=== PATIENT | male | born 1965 | race African-American/Black ===

== ENCOUNTER → 2017-04-08 | Outpatient (CLI) | payer OTHER ==
[~2017-04-08] MED LIST: DOCU1CAP39 PO; IBUP600T26 PO; IBUP800T23 PO; OXYC1TAB63 PO; SAW450CA2 PO
--- NOTE | 2017-04-08 10:39 | RADRPT ---
EXAM DATE/TIME: 04/08/2017 08:42 [facility] COMPARISON: CHEST SINGLE AP, May 14, 2016, 15:58. INDICATIONS : Evaluate for communicable disease, pneumonia, pneumothorax pt states lung surgery 04/18 MEDICAL HISTORY : None. SURGICAL HISTORY : None. ENCOUNTER: Initial ACUITY: 1 day PAIN SCORE: 0/10 LOCATION: Bilateral chest FINDINGS: PA and lateral views of the chest demonstrate diffuse interstitial densities without evidence of mass or effusion. The cardiomediastinal contours are unremarkable. Osseous structures are intact. CONCLUSION: Diffuse interstitial densities appears chronic. Ronny Drummond MD on April 08, 2017 at 9:11 Board Certified Radiologist. This report was verified electronically.
== END ==
LOC: CPRE 07:26
PROVIDERS: ATTEND Thoracic Surgery (Cardiothoracic Vascular Surgery)
DX: Z01.810 Encounter for preprocedural cardiovascular examination (principal); Z01.811 Encounter for preprocedural respiratory examination; Z01.812 Encounter for preprocedural laboratory examination; J84.9 Interstitial pulmonary disease, unspecified
CPT/HCPCS: 71020

== ENCOUNTER 2017-04-18 05:29 | Inpatient (IN) | payer OTHER ==
[~2017-04-18] VITALS: Ht 180.3 cm; Wt 88.0 kg
[2017-04-18] VITALS (9 sets, daily range): PULSE 55–93
[~2017-04-18 05:29] MED LIST changes: -DOCU1CAP39 PO; -IBUP600T26 PO; -OXYC1TAB63 PO; -SAW450CA2 PO
[2017-04-18] MEDS ORDERED: CHLORHEXIDINE GLUCONATE 2 % 1 PACK (2 CLOTHS) TOPICAL PRN (06:00)
[2017-04-18] MEDS ORDERED: LACTATED RINGER'S 1000 ML IV PRN (06:00)
[2017-04-18] MEDS ORDERED: INSULIN HUMAN REGULAR 1,000 UNITS/10 ML VIAL SQ PRN (06:00)
[2017-04-18] MEDS ORDERED: METOPROLOL TARTRATE 25 MG TAB PO PRN (06:00)
[2017-04-18] MEDS ORDERED: POVIDONE IODINE 5% (ANTISEPSIS KIT) 4 APPLICATIONS EACH NARE PRN (06:00)
[2017-04-18] MEDS ORDERED: SODIUM CHLORID 0.9% 500 ML IV PRN (06:00)
[2017-04-18] MEDS ORDERED: SAW450CA2 PO (06:42)
[2017-04-18] MEDS ORDERED: DEXAMETHASONE SOD PHOS 4 MG/ML VIAL ONE (07:04)
[2017-04-18] MEDS ORDERED: FAMOTIDINE 20 MG/2 ML VIAL ONE (07:04)
[2017-04-18] MEDS ORDERED: MIDAZOLAM HCL 2 MG/2 ML VIAL ONE (07:04)
[2017-04-18 07:11] LABS: BICARBONATE 26.9 MEQ/L (21.0-32.0); POTASSIUM 3.9 MEQ/L (3.5-5.1)
[2017-04-18] MEDS ORDERED: BUPIVACAINE LIPOSO PF 1.3% INJ 20 ML, DEXAMETHASONE INJ 4 MG, MORPHINE INJ 8 MG in SODI... IRRIGATION SCH (08:00)
[2017-04-18] MEDS ORDERED: ceFAZolin 2 GM PREMIX 50 ML ONE (09:07)
[2017-04-18] MEDS ORDERED: SODIUM CHLORIDE 0.9% FLUSH 5 ML FLUSH IV FLUSH PRN (10:30)
[2017-04-18] MEDS ORDERED: Post-op Orders (for Pharmacy) MISC OTHER ONE (10:30)
[2017-04-18] MEDS ORDERED: RESP: ALBUTEROL 2.5 MG/3 ML NEB (PRN) NEB (11:00)
[2017-04-18] MEDS ORDERED: MAGNESIUM HYDROXIDE SUSP 30 ML CUP PO PRN (11:00)
[2017-04-18] MEDS ORDERED: ACETAMINOPHEN 325 MG TAB PO PRN (11:00)
[2017-04-18] MEDS ORDERED: ONDANSETRON HCL 4 MG/2 ML VIAL IV PUSH PRN (11:00)
[2017-04-18] MEDS: KETOROLAC TROMETHAMINE 30 MG/ML (IVP) VIAL IV PUSH SCH ×3 (11:00→23:22)
[2017-04-18] MEDS: ACETAMINOPHEN 1000 MG/100 ML VIAL IV SCH ×3 (11:00→23:23)
[2017-04-18] MEDS: SODIUM CHLORIDE 0.9% FLUSH 5 ML FLUSH IV FLUSH SCH ×2 (11:00→20:43)
--- NOTE | 2017-04-18 11:43 | RADRPT ---
EXAM DATE/TIME: 04/18/2017 11:07 [facility] COMPARISON: CHEST PA & LAT, April 08, 2017, 8:42. CHEST SINGLE AP, May 14, 2016, 15:58. INDICATIONS : Post thoracotomy. MEDICAL HISTORY : None. SURGICAL HISTORY : None. ENCOUNTER: Initial ACUITY: 1 day PAIN SCORE: 7/10 LOCATION: Bilateral chest FINDINGS: A single portable frontal view of the chest shows a right-sided thoracostomy tube. A tiny lateral pne umothorax noted. Diffuse pulmonary infiltrates which are mixed interstitial and intra-alveolar in kash ure. No effusions. Heart is normal in size. A degenerative spine. CONCLUSION: 1. Tiny lateral pneumothorax on the right with right thoracostomy tube in good position. 2. Diffuse pulmonary opacities. Jesús Camarena Jr., MD on April 18, 2017 at 11:41 Board Certified Radiologist. This report was verified electronically.
[2017-04-18] MEDS ORDERED: ePHEDrine/NS 25 MG/5 ML SYR IV ONE (12:00)
[2017-04-18] MEDS ORDERED: ONDANSETRON HCL 4 MG/2 ML VIAL IV PUSH ONE (12:00)
[2017-04-18] MEDS ORDERED: PHENYLEPH/NS 1000 MCG/10 ML SYR IV ONE (12:00)
[2017-04-18] MEDS ORDERED: PROPOFOL 200 MG/20 ML AMP IV ONE (12:00)
[2017-04-18] MEDS ORDERED: NORMOSOL R INJ 1,000 ML IV ONE (12:00)
[2017-04-18] MEDS ORDERED: NEOSTIGMINE 3 MG/3 ML SYR IV ONE (12:00)
[2017-04-18] MEDS ORDERED: DO NOT ADM ANY ANTICOAGULANT DRUGS PRN (13:00)
--- NOTE | 2017-04-18 13:02 | PD.OP ---
cc: Bakari Rogel MD; Negro Landon MD Operative Report Date of Surgery: Apr 18, 2017 Preoperative Diagnosis: Postoperative Diagnosis: Procedure: 1. Right Video-Assisted Thoracoscopic Surgery (VATS). 2. Right Upper Lobe Biopsy 3. Right Middle Lobe Biopsy 4. Pleural-based Chest Wall Biopsy 5. Intercostal Nerve Block Surgeon: Negro Landon Returned Goods Repairer(s): Patric Lee Operation and Findings: PREOPERATIVE DIAGNOSES 1. Idiopathic Pulmonary Insufficiency 2. Bilateral Pulmonary Infiltrates POSTOPERATIVE DIAGNOSES Same SURGICAL PROCEDURE 1. Right Video-Assisted Thoracoscopic Surgery (VATS). 2. Right Upper Lobe Biopsy 3. Right Middle Lobe Biopsy 4. Pleural-based Chest Wall Biopsy 5. Intercostal Nerve Block SURGEON Negro Landon MD CASUAL SHOE INSPECTOR Gaurav Christensen FINANCIAL CENTER MANAGER ANESTHESIA General double lumen endotracheal. CAT DOG OR OTHER PET GROOMER Vikram Noguera, AYLIN Whitt MD PREPARATION ChloraPrep. COUNTS Needle, sponge, and instrument counts are correct. DRAINS One 28-Fr Chest Tube. COMPLICATIONS None. INDICATIONS The patient is a 51 yo gentleman with progressive dyspnea on unknown etiology. The patient is being brought to the operating room for lung biopsy. DESCRIPTION OF PROCEDURE The patient was brought to the operating room and placed supine on the OR table. Following the induction of adequate general double lumen endotracheal anesthesia and placement of appropriate monitoring devices, the patient was placed in the left lateral decubitus position. The right chest and surrounding areas were then prepped and draped in a standard sterile fashion. A 5 mm camera port was introduced into the 9th intercostal space in mid axillary line, and the camera introduced. A second 5 mm port was then placed anteriorly under direct visual guidance and an additional port placed posteriorly. Based on the chest CT a wedge biopsies of the superior segment of the left lobe and the anterior segment of the upper lobe were obtained and sent for histological and microbiological analysis. Additional biopsy of a pleural based chest wall calcific lesion was obtained and sent for histological analysis. The anterior port was removed and a 28 Fr chest tube was introduced and maintained in place with a nonabsorbable suture. All of the port sites were injected with Exparel solution. Following confirmation of the catheter in the proper place, the incisions were closed with [address] was attached to a Pleur-evac suction device, and sterile dressing applied. Intercostal nerve block was performed using Ropivacaine/Morphine solution at the level of the ports as well as 3 rib spaces above and below. The patient tolerated the procedure well and was extubated and transferred to the recovery room in stable condition. Negro Landon MD Apr 18, 2017 13:02
[2017-04-18] MEDS: oxyCODONE/ACETAMINOPHEN 5 MG/325 MG TAB PO PRN ×2 (14:28→20:43)
--- NOTE | 2017-04-18 15:11 | PD.CAR.PN ---
CVT Progress Note Subjective/Hospital Course: 51/ male , hx one year hx of dry non-productive cough and progressive SOB. W/U has included CXR Chest CT and bronch which demonstrated reticulondular lung paterrn without distinct mass , BX was non-diagnostic non smoker , here for elective surgery to eval Interstitial Lung disease unknown etilogy PREOPERATIVE DIAGNOSES 1. Idiopathic Pulmonary Insufficiency 2. Bilateral Pulmonary Infiltrates SURGICAL PROCEDURE 04/18 1. Right Video-Assisted Thoracoscopic Surgery (VATS). 2. Right Upper Lobe Biopsy 3. Right Middle Lobe Biopsy 4. Pleural-based Chest Wall Biopsy Objective: Vital Signs Date Time Temp Pulse Resp B/P (MAP) Pulse Ox O2 Delivery O2 Flow Rate FiO2 04/18/17 14:32 18 04/18/17 14:31 18 04/18/17 13:55 97.6 85 16 138/73 (94) 100 Nasal Cannula 3 04/18/17 13:00 85 16 128/64 (85) 100 Nasal Cannula 3 04/18/17 12:30 60 16 134/66 (88) 100 Nasal Cannula 3 04/18/17 12:00 58 15 136/62 (86) 100 Nasal Cannula 3 04/18/17 11:45 59 15 143/75 (97) 100 Nasal Cannula 3 04/18/17 11:30 58 16 146/67 (93) 100 Nasal Cannula 3 04/18/17 11:15 58 16 149/81 (103) 100 Nasal Cannula 3 04/18/17 11:00 70 15 153/83 (106) 100 Nasal Cannula 3 04/18/17 10:55 97.5 64 15 134/69 (90) 100 Nasal Cannula 3 Labs: Laboratory Tests Test 04/18/17 06:35 Blood Urea Nitrogen 18 MG/DL (7-18) Creatinine 1.20 MG/DL (0.60-1.30) Random Glucose 148 MG/DL (74-106) Calcium Level 9.0 MG/DL (8.5-10.1) Sodium Level 140 MEQ/L (136-145) Potassium Level 3.9 MEQ/L (3.5-5.1) Chloride Level 105 MEQ/L (98-107) Carbon Dioxide Level 26.9 MEQ/L (21.0-32.0) Anion Gap 8 MEQ/L (5-15) Estimat Glomerular Filtration Rate 77 ML/MIN (>89) Result Diagram: 04/18/17 0635 Chelsey Acevedo Apr 18, 2017 15:11
[2017-04-18] MEDS: RESP: ALBUTEROL 2.5 MG/3 ML NEB (SCH) NEB ×2 (16:00→22:00)
[2017-04-18] MEDS: PANTOPRAZOLE SOD 40 MG DELAYED RELEASE TAB PO SCH (20:43)
[2017-04-18] MEDS ORDERED: DOCUSATE CALCIUM 240 MG CAP PO SCH (21:00)
[2017-04-19] VITALS (29 sets, daily range): BP systolic 118–141; BP diastolic 78–90; PULSE 50–86; RESP 16–18; TEMP 97.7–98.7; O2SAT 96–100
[2017-04-19] MEDS: RESP: ALBUTEROL 2.5 MG/3 ML NEB (SCH) NEB ×4 (02:58→21:24)
[2017-04-19] MEDS: oxyCODONE/ACETAMINOPHEN 5 MG/325 MG TAB PO PRN ×4 (03:19→23:52)
[2017-04-19] MEDS: KETOROLAC TROMETHAMINE 30 MG/ML (IVP) VIAL IV PUSH SCH (04:44)
[2017-04-19] MEDS: ACETAMINOPHEN 1000 MG/100 ML VIAL IV SCH (04:45)
[2017-04-19] MEDS: SODIUM CHLORIDE 0.9% FLUSH 5 ML FLUSH IV FLUSH SCH ×2 (09:00→20:39)
--- NOTE | 2017-04-19 10:13 | RADRPT ---
EXAM DATE/TIME: 04/19/2017 09:16 [facility] COMPARISON: CHEST SINGLE AP, April 18, 2017, 11:07. INDICATIONS : Patient had right lung biopsy yesterday. MEDICAL HISTORY : None. SURGICAL HISTORY : None. ENCOUNTER: Initial ACUITY: 1 day PAIN SCORE: 4/10 LOCATION: Right upper chest FINDINGS: Chest tube in place on the right with trace pneumothorax improved in the interval. Coarse interstiti al changes persist in both lungs. CONCLUSION: Trace pneumothorax on the right with chest tube in good position. Efrem Barlow MD FACR on April 19, 2017 at 10:11 Board Certified Radiologist. This report was verified electronically.
[2017-04-19] MEDS: DOCUSATE SODIUM 100 MG CAP PO SCH ×2 (11:04→20:39)
[2017-04-19] MEDS: POLYETHYLENE GLYCOL 17 GM PKG PO SCH (11:04)
--- NOTE | 2017-04-19 11:17 | PD.CAR.PN ---
CVT Progress Note Subjective/Hospital Course: 51/ male , hx one year hx of dry non-productive cough and progressive SOB. W/U has included CXR Chest CT and bronch which demonstrated reticulondular lung paterrn without distinct mass , BX was non-diagnostic non smoker , here for elective surgery to eval Interstitial Lung disease unknown etilogy PREOPERATIVE DIAGNOSES 1. Idiopathic Pulmonary Insufficiency 2. Bilateral Pulmonary Infiltrates SURGICAL PROCEDURE 04/18 1. Right Video-Assisted Thoracoscopic Surgery (VATS). 2. Right Upper Lobe Biopsy 3. Right Middle Lobe Biopsy 4. Pleural-based Chest Wall Biopsy 04/19 repeat CXR shows trace right PTX, no air leak, to water seal on room air, pain controlled path pending Objective: GENERAL: SKIN: Warm and dry. dressing D&I right posterior chest wall HEAD: Normocephalic. EYES: No scleral icterus. No injection or drainage. NECK: Supple, trachea midline. No JVD or lymphadenopathy. CARDIOVASCULAR: Regular rate and rhythm without murmurs, gallops, or rubs. RESPIRATORY: Breath sounds equal bilaterally. No accessory muscle use. chest tube in place, no air leak, to water seal GASTROINTESTINAL: Abdomen soft, non-tender, nondistended. MUSCULOSKELETAL: No cyanosis, or edema. BACK: Nontender without obvious deformity. No CVA tenderness. Vital Signs Date Time Temp Pulse Resp B/P (MAP) Pulse Ox O2 Delivery O2 Flow Rate FiO2 04/19/17 10:40 18 04/19/17 09:47 98 04/19/17 07:00 59 04/19/17 07:00 98.1 55 18 118/82 (94) 100 04/19/17 07:00 95 0.50 04/19/17 06:00 57 04/19/17 05:00 54 04/19/17 04:00 65 04/19/17 03:02 99 Nasal Cannula 2.00 04/19/17 03:00 76 04/19/17 03:00 98 Nasal Cannula 2.00 04/19/17 02:00 50 04/19/17 01:00 51 04/19/17 00:00 50 04/18/17 23:05 Nasal Cannula 2.00 04/18/17 23:00 99 Nasal Cannula 2.50 04/18/17 23:00 55 04/18/17 22:00 56 04/18/17 21:00 80 04/18/17 20:35 Nasal Cannula 2.50 04/18/17 20:30 99 Nasal Cannula 3.00 04/18/17 20:00 76 04/18/17 19:00 81 04/18/17 18:02 86 04/18/17 17:22 16 04/18/17 17:22 16 04/18/17 17:11 63 04/18/17 16:00 93 04/18/17 15:17 87 04/18/17 13:55 97.6 85 16 138/73 (94) 100 Nasal Cannula 3 04/18/17 13:00 85 16 128/64 (85) 100 Nasal Cannula 3 04/18/17 12:30 60 16 134/66 (88) 100 Nasal Cannula 3 04/18/17 12:00 58 15 136/62 (86) 100 Nasal Cannula 3 04/18/17 11:45 59 15 143/75 (97) 100 Nasal Cannula 3 04/18/17 11:30 58 16 146/67 (93) 100 Nasal Cannula 3 04/18/17 11:15 58 16 149/81 (103) 100 Nasal Cannula 3 Result Diagram: 04/18/17 0635 Telemetry: NSR (1) Interstitial pulmonary disease, unspecified Plan: path pending (2) 1. Right Video-Assisted Thoracoscopic Surgery (VATS). Plan: pulmonary toileting OOB, ambulate pain control GI motility Chelsey Hong Apr 19, 2017 11:17
[2017-04-19] MEDS ORDERED: OXYC1TAB63 PO (11:46)
[2017-04-19] MEDS ORDERED: DOCU1CAP39 PO (11:46)
[2017-04-19] MEDS: PANTOPRAZOLE SOD 40 MG DELAYED RELEASE TAB PO SCH (20:39)
[2017-04-20] VITALS (27 sets, daily range): BP systolic 122–156; BP diastolic 70–97; PULSE 64–90; RESP 18–21; TEMP 98–98.6; O2SAT 93–98
[2017-04-20] MEDS: oxyCODONE/ACETAMINOPHEN 5 MG/325 MG TAB PO PRN (03:27)
[2017-04-20] MEDS: RESP: ALBUTEROL 2.5 MG/3 ML NEB (SCH) NEB ×3 (04:38→22:00)
[2017-04-20] MEDS: SODIUM CHLORIDE 0.9% FLUSH 5 ML FLUSH IV FLUSH SCH ×2 (09:00→20:37)
[2017-04-20] MEDS: POLYETHYLENE GLYCOL 17 GM PKG PO SCH (09:02)
[2017-04-20] MEDS: DOCUSATE SODIUM 100 MG CAP PO SCH ×2 (09:03→20:39)
--- NOTE | 2017-04-20 10:13 | HHI.DS ---
Discharge Summary Admission Date Apr 18, 2017 at 10:30 Admitting Diagnosis Interstitial lung disease (1) Interstitial pulmonary disease, unspecified Diagnosis: Principal ICD Codes: J84.9 - Interstitial pulmonary disease, unspecified Procedures Right VATS for lung biopsy Brief History 51/ male , hx one year hx of dry non-productive cough and progressive SOB. W/U has included CXR Chest CT and bronch which demonstrated reticulondular lung paterrn without distinct mass , BX was non-diagnostic non smoker , here for elective surgery to eval Interstitial Lung disease unknown etilogy CBC/BMP: 04/18/17 0635 Significant Findings Laboratory Tests Test 04/18/17 06:35 Random Glucose 148 MG/DL (74-106) Estimat Glomerular Filtration Rate 77 ML/MIN (>89) Imaging Last Impressions Chest X-Ray 04/19/17 0000 Signed Impressions: Service Date/Time: Saturday, April 19, 2017 09:16 - CONCLUSION: Trace pneumothorax on the right with chest tube in good position. Efrem Barlow MD FACR PE at Discharge chest - CTA COR - RRR Wound - dry and intact Hospital Course Underwent right VATS surgery 2 days ago and had chest tube removed today Pt Condition on Discharge: Good Discharge Disposition: Discharge Home Discharge Instructions DIET: Follow Instructions for: As Tolerated, No Restrictions Activities you can perform: Shower Only-No Bath Activities to avoid: Lifting/Bending, Strenuous Activity, Driving Additional Activity Instructio: no lifting > 8lbs or gallon of milk Follow up Referrals: Appointment for Follow Up Appointment for Follow Up PCP Follow-up New Medications: Docusate Sodium (Dok) 100 Mg Cap 100 MG PO DAILY for Constipation, #30 CAP 0 Refills Oxycodone-Acetaminophen (Oxycodone-Acetaminophen) 5-325 mg Tab 1 TAB PO Q6H PRN for PAIN SCALE 3 TO 5, #40 TAB 0 Refills Continued Medications: Ibuprofen (Ibuprofen) 800 Mg Tab 800 MG PO DAILY PRN for PAIN, #40 TAB 0 Refills Mae Duarte MD Apr 20, 2017 10:13
--- NOTE | 2017-04-20 17:33 | RADRPT ---
EXAM DATE/TIME: 04/20/2017 17:20 [facility] COMPARISON: CHEST SINGLE AP, April 19, 2017, 9:16. INDICATIONS : Shortness of breath and chest soreness post biopsy. MEDICAL HISTORY : None. SURGICAL HISTORY : None. ENCOUNTER: Initial ACUITY: 1 day PAIN SCORE: 2/10 LOCATION: Bilateral chest FINDINGS: There is no significant residual pneumothorax lung chest tube removal. Coarse interstitial changes p ersist in both lungs. The heart and pulmonary vascularity are normal. The portion of the bony skeleto n visualized is unremarkable. CONCLUSION: Satisfactory appearance following chest tube removal. Efrem Barlow MD FACR on April 20, 2017 at 17:30 Board Certified Radiologist. This report was verified electronically.
[2017-04-20] MEDS: PANTOPRAZOLE SOD 40 MG DELAYED RELEASE TAB PO SCH (20:39)
[2017-04-21] VITALS (10 sets, daily range): BP systolic 116–121; BP diastolic 78; PULSE 68–78; RESP 16; TEMP 98.6; O2SAT 96
[2017-04-21] MEDS: RESP: ALBUTEROL 2.5 MG/3 ML NEB (SCH) NEB ×2 (04:00→07:54)
[2017-04-21] MEDS: SODIUM CHLORIDE 0.9% FLUSH 5 ML FLUSH IV FLUSH SCH (09:00)
[2017-04-21] MEDS: DOCUSATE SODIUM 100 MG CAP PO SCH (10:57)
[2017-04-21] MEDS: POLYETHYLENE GLYCOL 17 GM PKG PO SCH (10:59)
== END 2017-04-21 11:40 | disposition home or self-care (01) | DRG 168 ==
LOC: HCVO 05:29 → HSDI 10:30 → HCIN 14:05
PROVIDERS: ADMIT Thoracic Surgery (Cardiothoracic Vascular Surgery); ATTEND Thoracic Surgery (Cardiothoracic Vascular Surgery)
PROC: 0BBD4ZX Excision of Right Middle Lung Lobe, Percutaneous Endoscopic Approach, Diagnostic (ICD-10-PCS; 2017-04-18)
PROC: 3E0T3CZ (ICD-10-PCS; 2017-04-18)
PROC: 0WB84ZX Excision of Chest Wall, Percutaneous Endoscopic Approach, Diagnostic (ICD-10-PCS; 2017-04-18)
PROC: 0BBC4ZX Excision of Right Upper Lung Lobe, Percutaneous Endoscopic Approach, Diagnostic (ICD-10-PCS; principal; 2017-04-18 09:03)
DX: J84.9 Interstitial pulmonary disease, unspecified (principal)
CPT/HCPCS: 71010; 80048; 86850; 86900; 86901; 86920; 87015; 87070; 87102; 87116; 87205; 87206; 88305; 88307; 88309; 88312; 94150; 94640; 94664; J0131; J0690; J1100; J1885; J2250; J2370; J2405; J2710; J3010; J7120; J7613